=== PATIENT | female | born 1995 | race Two or more races ===

== ENCOUNTER 2017-08-07 21:56 | Emergency (ER) | payer MEDICAID ==
[2017-08-07 22:51] LABS: BASOPHILS 0 % (0-2); EOSINOPHILS 0.6 % (0-7); HEMATOCRIT 37.8 % (36.0-48.0); HEMOGLOBIN 12.2 g/dL (12-16); IMMATURE GRANULOCYTES 0.2 % (0-5); LYMPHOCYTES 13.6 % (15-50); MCH 26.9 pg (26.0-34.0); MCHC 32.3 g/dL (31.0-37.0); MCV 83.4 fL (80.0-100.0); MEAN PLATELET VOLUME 10.9 fL (7.4-10.4); MONOCYTES 11.9 % (2-11); NEUTROPHILS 73.7 % (40-80); PLATELET COUNT 225 10x3/uL (130-400); RBC 4.53 10x6/uL (4.00-5.40); RDW 14.2 % (11.5-14.5); WBC 4.9 10x3/uL (4.8-10.8)
[2017-08-07 23:01] LABS: HCG SERUM NEGATIVE (NEGATIVE)
[2017-08-07 23:12] LABS: ALBUMIN 3.9 g/dL (3.4-5.0); ALKALINE PHOSPHATASE 65 U/L (46-116); ALT (SGPT) 16 U/L (10-68); AMYLASE - SERUM 44 U/L (25-115); BILIRUBIN - TOTAL 0.68 mg/dL (0.2-1.3); CALC OSMOLALITY 284 mosm/kg (275-300); CALCIUM 8.4 mg/dL (8.5-10.1); CARBON DIOXIDE 26.7 mmol/L (21.0-32.0); CHLORIDE - SERUM 107 mmol/L (98-107); CREATININE - SERUM 0.8 mg/dL (0.6-1.3); GLUCOSE 75 mg/dL (74-106); LIPASE 90 U/L (73-393); POTASSIUM - SERUM 3.6 mmol/L (3.5-5.1); PROTEIN - SERUM 7.5 g/dL (6.4-8.2); SODIUM 144 mmol/L (136-145); UREA NITROGEN 10 mg/dL (7-18); eGFR NON AFRICAN AMERICAN > 90 mL/min (90-120)
[2017-08-08 00:08] LABS: APPEARANCE CLOUDY (CLEAR); BILIRUBIN NEGATIVE (NEGATIVE); COLOR YELLOW (YELLOW); GLUCOSE NEGATIVE (NEGATIVE); KETONE NEGATIVE (NEGATIVE); NITRITE NEGATIVE (NEGATIVE); PROTEIN NEGATIVE (NEGATIVE); UROBILINOGEN NORMAL (NORMAL)
[2017-08-08 00:09] LABS: BACTERIA MANY /hpf (NONE SEEN); MUCUS <1+ /lpf (NONE SEEN); RED CELLS - URINE OCC /hpf (0-5); WHITE CELLS - URINE >50 /hpf (0-5)
== END 2017-08-08 00:40 | disposition home or self-care (01) ==
LOC: D.ER 21:56
PROVIDERS: Emergency Medicine
DX: R10.9 Unspecified abdominal pain (principal); R11.10 Vomiting, unspecified; Z95.0 Presence of cardiac pacemaker; Z86.73 Personal history of transient ischemic attack (TIA), and cerebral infarction without residual deficits; M32.9 Systemic lupus erythematosus, unspecified

== ENCOUNTER → 2018-01-08 13:42 | Outpatient (CLI) | payer OTHER | END | disposition home or self-care (01) | LOC: D.CT 13:42 | DX: M25.511 Pain in right shoulder (principal) ==

== ENCOUNTER → 2018-02-28 14:23 | Outpatient (CLI) | payer MEDICAID | END | disposition home or self-care (01) | LOC: D.CT 14:23 | DX: M54.2 Cervicalgia (principal); M25.511 Pain in right shoulder ==